=== PATIENT | male | born 1950 | race Native Hawaiian/Other Pacific Islander ===

== ENCOUNTER 2021-03-28 15:04 | Emergency (ER) | payer OTHER ==
[~2021-03-28] VITALS: Ht 172.7 cm; Wt 118.8 kg
[~2021-03-28 15:04] MED LIST: AMLODIPINE BESYLATE PO; ARIPIPRAZOLE10 MG PO; ASPIRIN/ENTERIC81 MG PO; CLON0.1T16 PO; DICL1GEL2 TOP; DONE5TAB PO; ESCI10TA PO; FINGERSTIX; FURO40TA93 PO; HEPARIN SO5000 UNIT2 SC; HUMALOG KW100 UNIT/M SC; ISOS30TA17 PO; MELOXICAM7.5 MG PO; MEMA5TAB PO; METF500T PO; NICODERM C21 MG/241 TD; TAMS0.4C PO; TRAZ50TA36 PO; TYLENOL325 MG PO
[2021-03-28 15:05] VITALS: BP 126/52; TEMP 98
[2021-03-28 15:30] LABS: PLATELET COUNT 344 K/uL (142-355)
[2021-03-28 16:03] LABS: POTASSIUM 3.7 mmol/L (3.6-5.2)
[2021-03-28] MEDS ORDERED: ALLO100T22 PO (17:44)
[2021-03-28] MEDS ORDERED: CALCIUM PO (17:45)
[2021-03-28] MEDS ORDERED: DIVA500T2 PO (17:47)
[2021-03-28] MEDS ORDERED: DOCU100C10 PO (17:47)
[2021-03-28] MEDS ORDERED: DRISDOL50000 UNIT PO (17:48)
[2021-03-28] MEDS ORDERED: ELIQUIS5 MG PO (17:50)
[2021-03-28] MEDS ORDERED: FERROUS SULF325 M1 PO (17:51)
[2021-03-28] MEDS ORDERED: 24HR ALLERGY R180 MG PO (17:52)
[2021-03-28] MEDS ORDERED: KP FOLIC ACID1 MG PO (17:53)
[2021-03-29] MEDS ORDERED: NEURONTIN 100M100 MG PO (06:36)
[2021-03-29] MEDS ORDERED: MAG OXIDE400 MG PO (06:40)
[2021-03-29] MEDS ORDERED: MELATONIN MAXIM10 MG PO (06:42)
[2021-03-29] MEDS ORDERED: METO2.5T3 PO (06:43)
[2021-03-29] MEDS ORDERED: METO25TA2 PO (06:45)
[2021-03-29] MEDS ORDERED: INSU100P SC (06:46)
[2021-03-29] MEDS ORDERED: PANTOPRAZOLE 40MG TA PO (06:47)
[2021-03-29] MEDS ORDERED: K-TAB20 MEQ PO (06:48)
[2021-03-29] MEDS ORDERED: RISP1TAB PO (06:49)
[2021-03-29] MEDS ORDERED: EXELON9.5 MG/24 TOP (06:50)
[2021-03-29] MEDS ORDERED: ROPINIROLE0.25 MG PO (06:51)
[2021-03-29] MEDS ORDERED: ROSU10TA PO (06:51)
[2021-03-29] MEDS ORDERED: TORSEMIDE20 MG PO (06:52)
[2021-03-29] MEDS ORDERED: TRAZODONE HYDR100 MG PO (06:53)
[2021-03-29] MEDS ORDERED: TRESIBA FL200 UNIT/M SC ×2 (06:55→06:56)
[2021-03-29] MEDS ORDERED: ZINC220 M1 PO (06:57)
== END 2021-03-28 16:30 | disposition other institution (70) ==
LOC: ED 15:04
PROVIDERS: Family Medicine
DX: F41.8 Other specified anxiety disorders (principal); R45.1 Restlessness and agitation; L03.116 Cellulitis of left lower limb; L03.115 Cellulitis of right lower limb; Z11.52 Encounter for screening for COVID-19; Z04.6 Encounter for general psychiatric examination, requested by authority
CPT/HCPCS: 80053; 85027; 87635; 93005; 99283; U0003